=== PATIENT | male | born 1970 | race African-American/Black ===

== ENCOUNTER 2016-07-04 20:28 | Emergency (ER) | payer MEDICAID ==
[~2016-07-04] VITALS: Ht 175.3 cm; Wt 68.0 kg
[2016-07-04 20:30] VITALS: BP 135/83
[2016-07-04] MEDS ORDERED: LIDOCAINE HCL 1% 20ML VIAL (Pyxis) INJ MC ONE (21:45)
[2016-07-04] MEDS ORDERED: BACITRACIN ZINC OINT UDPKT TOP ONE (21:45)
[2016-07-05 14:41] LABS: HEPATITIS B SURFACE ANTIGEN NEGATIVE
[2016-07-05 15:08] LABS: HEPATITIS C VIR.AB < 0.02 INDEXVAL (0.00-0.80)
== END 2016-07-04 23:27 | disposition home or self-care (01) ==
LOC: ER 20:29
DX: S01.81XA Laceration without foreign body of other part of head, initial encounter (principal); F17.210 Nicotine dependence, cigarettes, uncomplicated; W26.0XXA Contact with knife, initial encounter; Y93.89 Activity, other specified; Y92.89 Other specified places as the place of occurrence of the external cause; Y99.8 Other external cause status
CPT/HCPCS: 12013; 36415; 99283; J3490

== ENCOUNTER 2017-08-20 23:01 | Emergency (ER) | payer MEDICAID ==
[~2017-08-20] VITALS: Ht 182.9 cm; Wt 75.0 kg
[2017-08-21 00:27] VITALS: BP 145/81
== END 2017-08-21 00:28 | disposition home or self-care (01) ==
LOC: ER 23:01
DX: F16.10 Hallucinogen abuse, uncomplicated (principal); F12.10 Cannabis abuse, uncomplicated; F17.200 Nicotine dependence, unspecified, uncomplicated; Z78.1 Physical restraint status
CPT/HCPCS: 99283

== ENCOUNTER 2018-11-06 18:41 | Emergency (ER) | payer MEDICAID, OTHER ==
[~2018-11-06] VITALS: Ht 177.8 cm; Wt 75.0 kg
[2018-11-06] MEDS ORDERED: IBUPROFEN 600MG TABLET PO ONE (20:00)
[2018-11-06] MEDS ORDERED: BACITRACIN ZINC OINT UDPKT TOP ONE (20:00)
[2018-11-06] MEDS ORDERED: BACITRACIN 15GM TUBE TOP SCH (20:15)
[2018-11-06] MEDS ORDERED: LIDOCAINE HCL/EPINEPHRINE 1%-EPI 1:100,000 20 ML VIAL INFIL ONE (21:00)
[2018-11-06 21:30] VITALS: BP 127/85
== END 2018-11-06 21:30 | disposition home or self-care (01) ==
LOC: ER 18:41
DX: S01.111A Laceration without foreign body of right eyelid and periocular area, initial encounter (principal); S00.83XA Contusion of other part of head, initial encounter; S40.211A Abrasion of right shoulder, initial encounter; Y04.0XXA Assault by unarmed brawl or fight, initial encounter; Y93.89 Activity, other specified; Y92.488 Other paved roadways as the place of occurrence of the external cause
CPT/HCPCS: 12013; 99283; J3490

== ENCOUNTER 2019-02-25 22:12 | Emergency (ER) | payer OTHER ==
[~2019-02-25] VITALS: Ht 185.4 cm; Wt 77.0 kg
[2019-02-25] MEDS: SODIUM CHLORIDE 0.9% 1,000 ML IV ONE (00:15)
[2019-02-25] MEDS ORDERED: LORAZEPAM 2MG/ML CPJ IV ONE (23:30)
[2019-02-25 23:48] LABS: BASOPHILS % 1.3 % (0.0-2.0); EOSINOPHILS % 1.7 % (0.0-5.0); HEMATOCRIT. 40.1 % (42.0-52.0); HEMOGLOBIN. 13.5 g/dL (14.0-18.0); MEAN CORPUSCULAR HEMOGLOBIN 32.3 pg (28.0-32.0); MEAN CORPUSCULAR VOLUME 95.9 fL (80.0-94.0); MEAN PLATELET VOLUME 7.1 fl (7.4-10.4); MONOCYTES % 7.3 % (2.0-8.0); NEUTROPHILS % 43.7 % (40.0-76.0); PLATELET 271 x1000/uL (130-400); RED BLOOD CELL COUNT 4.19 mill/uL (4.7-6.1); RED CELL DISTRIBUTION WIDTH 13.6 % (11.6-14.6)
[2019-02-25 23:55] LABS: CHLORIDE 105 mEq/L (98-107)
[2019-02-25 23:59] LABS: ETHANOL BLOOD 129 mg/dL
[2019-02-26] MEDS: SODIUM CHLORIDE 0.9% 1,000 ML IV ONE (00:15)
[2019-02-26 00:38] LABS: *AMPHETAMINES SCREEN URINE NEGATIVE (NEGATIVE); *BARBITURATES SCREEN URINE NEGATIVE (NEGATIVE); *BENZODIAZEPINES SCREEN URINE NEGATIVE (NEGATIVE); *COCAINE SCREEN URINE NEGATIVE (NEGATIVE)
[2019-02-26 00:39] LABS: CANNABINOID URINE SCREEN NEGATIVE (NEGATIVE); METHADONE URINE SCREEN NEGATIVE (NEGATIVE); OPIATES URINE SCREEN NEGATIVE (NEGATIVE); PHENCYCLIDINE URINE SCREEN PRESUMTIVE POSITIVE (NEGATIVE)
[2019-02-26 02:47] VITALS: BP 123/87
== END 2019-02-26 02:53 | disposition home or self-care (01) ==
LOC: ER 22:12
DX: F10.129 Alcohol abuse with intoxication, unspecified (principal); F16.10 Hallucinogen abuse, uncomplicated; Y90.6 Blood alcohol level of 120-199 mg/100 ml; Z78.1 Physical restraint status
CPT/HCPCS: 36415; 80053; 80305; 80307; 80320; 80329; 85025; 96374; 99284; J2060; J7030; Z7610; G0480

== ENCOUNTER 2019-03-06 10:06 | Emergency (ER) | payer OTHER ==
[~2019-03-06] VITALS: Ht 175.3 cm; Wt 73.0 kg
[2019-03-06] MEDS ORDERED: SODIUM CHLORIDE 0.9% 1,000 ML IV ONE (10:26)
[2019-03-06] MEDS ORDERED: LORAZEPAM 2MG/ML CPJ IV ONE ×4 (10:30→16:00)
[2019-03-06] MEDS ORDERED: LORAZEPAM 2MG/ML CPJ ONE (10:30)
[2019-03-06] MEDS ORDERED: OLANZAPINE 10 MG/VIAL IM ONE (10:45)
[2019-03-06 11:38] LABS: BASOPHILS % 0.8 % (0.0-2.0); EOSINOPHILS % 0.6 % (0.0-5.0); HEMATOCRIT. 41.4 % (42.0-52.0); HEMOGLOBIN. 13.9 g/dL (14.0-18.0); LYMPHOCYTES % 29.2 % (20.0-50.0); MEAN CORPUSCULAR HEMOGLOBIN 32.4 pg (28.0-32.0); MEAN CORPUSCULAR VOLUME 96.4 fL (80.0-94.0); MEAN PLATELET VOLUME 7.3 fl (7.4-10.4); MONOCYTES % 6.3 % (2.0-8.0); NEUTROPHILS % 63.1 % (40.0-76.0); PLATELET 270 x1000/uL (130-400); RED BLOOD CELL COUNT 4.29 mill/uL (4.7-6.1); RED CELL DISTRIBUTION WIDTH 14.1 % (11.6-14.6)
[2019-03-06 11:43] LABS: CHLORIDE 106 mEq/L (98-107)
[2019-03-06 11:48] LABS: ETHANOL BLOOD < 10 mg/dL
[2019-03-06 11:57] LABS: PHENOBARBITAL < 2.1 ug/mL (15.0-40.0)
[2019-03-06 11:59] LABS: VALPROIC ACID < 3.0 ug/mL (50-100)
[2019-03-06 12:07] LABS: CARBAMAZEPINE < 0.5 ug/mL (4-12)
[2019-03-06 13:16] LABS: CLARITY URINE CLEAR (CLEAR); COLOR URINE YELLOW (YELLOW); KETONES URINE NEGATIVE (NEGATIVE); LEUKOCYTE ESTERASE URINE NEGATIVE (NEGATIVE); NITRITE URINE NEGATIVE (NEGATIVE); OCCULT BLOOD URINE NEGATIVE (NEGATIVE); PROTEIN URINE NEGATIVE (NEGATIVE); SPECIFIC GRAVITY URINE 1.011 (1.005-1.030); UROBILINOGEN URINE 0.2 E.U./dL (0.2-1.0)
[2019-03-06 13:38] LABS: *AMPHETAMINES SCREEN URINE NEGATIVE (NEGATIVE); *BARBITURATES SCREEN URINE NEGATIVE (NEGATIVE); *BENZODIAZEPINES SCREEN URINE NEGATIVE (NEGATIVE); *COCAINE SCREEN URINE PRESUMTIVE POSITIVE (NEGATIVE); METHADONE URINE SCREEN NEGATIVE (NEGATIVE); OPIATES URINE SCREEN NEGATIVE (NEGATIVE)
[2019-03-06 13:39] LABS: CANNABINOID URINE SCREEN PRESUMTIVE POSITIVE (NEGATIVE); PHENCYCLIDINE URINE SCREEN PRESUMTIVE POSITIVE (NEGATIVE)
[2019-03-06] MEDS ORDERED: HALOPERIDOL LACTATE 5MG/ML VIAL IM ONE (21:45)
[2019-03-07 01:31] VITALS: BP 132/66
== END 2019-03-07 02:15 | disposition home or self-care (01) ==
LOC: ER 10:06
DX: T40.995A Adverse effect of other psychodysleptics [hallucinogens], initial encounter (principal); G92 Toxic encephalopathy; F14.129 Cocaine abuse with intoxication, unspecified; Y92.89 Other specified places as the place of occurrence of the external cause
CPT/HCPCS: 36415; 73140; 80053; 80156; 80165; 80184; 80185; 80305; 80320; 81003; 85025; 96361; 96372; 96374; 96376; 99284; J1630; J2060; J3490; J7030; Z7610; G0480

== ENCOUNTER 2019-03-09 13:28 | Emergency (ER) | payer OTHER ==
[~2019-03-09] VITALS: Ht 180.3 cm; Wt 68.0 kg
[2019-03-09 14:20] VITALS: BP 110/71
[2019-03-09] MEDS ORDERED: KETOROLAC 60MG/2ML VIAL IM ONE (14:45)
== END 2019-03-09 15:24 | disposition home or self-care (01) ==
LOC: ER 13:37
DX: S63.271A Dislocation of unspecified interphalangeal joint of left index finger, initial encounter (principal); X58.XXXA Exposure to other specified factors, initial encounter; Y93.89 Activity, other specified; Y92.89 Other specified places as the place of occurrence of the external cause; Y99.8 Other external cause status; F10.20 Alcohol dependence, uncomplicated; Y90.0 Blood alcohol level of less than 20 mg/100 ml; F16.10 Hallucinogen abuse, uncomplicated
CPT/HCPCS: 29130; 96372; 99283; J1885

== ENCOUNTER 2019-04-07 11:59 | Emergency (ER) | payer MEDICAID, OTHER ==
[~2019-04-07] VITALS: Ht 182.9 cm; Wt 73.0 kg
[2019-04-07 13:22] VITALS: BP 135/113
== END 2019-04-07 18:09 | disposition home or self-care (01) ==
LOC: ER 11:59
DX: S63.285A Dislocation of proximal interphalangeal joint of left ring finger, initial encounter (principal); X58.XXXA Exposure to other specified factors, initial encounter; Y93.9 Activity, unspecified; Y92.9 Unspecified place or not applicable; F12.90 Cannabis use, unspecified, uncomplicated
CPT/HCPCS: 73130; 99283